=== PATIENT | female | born 1995 | race Caucasian/White ===

== ENCOUNTER 2023-04-16 13:10 | Inpatient (IN) | payer OTHER ==
[2023-04-16 15:04] VITALS: BMI 24.4
[2023-04-16] MEDS ORDERED: POLYETHYLENE GLYCOL (HEALTHYLAX) 3350 17 GM PACKET PO PRN (15:30)
[2023-04-16] MEDS ORDERED: NICOTINE POLACRILEX 4 MG GUM BUC PRN (15:30)
[2023-04-16] MEDS ORDERED: BENZOCAINE/MENTHOL (CHLORASEPTIC ) LOZENGE MM PRN (15:30)
[2023-04-16] MEDS ORDERED: NALOXONE HCL (KLOXXADO) 8 MG SPRAY NS PRN (15:30)
[2023-04-16] MEDS ORDERED: LOPERAMIDE HCL 2 MG CAPSULE PO PRN (15:30)
[2023-04-16] MEDS ORDERED: MAGNESIUM HYDROX 2400MG/30ML ORAL SUSPENSION 30 ML CUP PO PRN (15:30)
[2023-04-16] MEDS ORDERED: MAG HYDROX/AL HYDROX/SIMETH 30 ML UNIT-DOSE CUP PO PRN (15:30)
[2023-04-16] MEDS ORDERED: ACETAMINOPHEN 325 MG TABLET (FP) PO PRN (15:30)
[2023-04-16] MEDS ORDERED: IBUPROFEN 400 MG TABLET (FP) PO PRN (15:30)
[2023-04-16] MEDS ORDERED: ONDANSETRON *ODT* 4 MG TABLET SL PRN (15:30)
[2023-04-16] MEDS ORDERED: BENZONATATE 200 MG CAPSULE PO PRN (15:30)
[2023-04-16] MEDS ORDERED: guaiFENesin 600 MG TABLET.ER (FP) PO PRN (15:30)
[2023-04-16] MEDS ORDERED: chlordiazePOXIDE HCL 25 MG CAPSULE PO PRN (15:30)
[2023-04-16] MEDS ORDERED: BISMUTH SUBSALICYLATE 524 MG/30 ML PO PRN (15:30)
[2023-04-16] MEDS ORDERED: NALOXONE HCL 0.4 MG/ML VIAL IM PRN (15:30)
[2023-04-16] MEDS ORDERED: DICYCLOMINE HCL 10 MG CAPSULE PO PRN (15:30)
[2023-04-16] MEDS ORDERED: IBUPROFEN 600 MG TABLET (FP) PO PRN (15:30)
[2023-04-16] MEDS ORDERED: ACETAMINOPHEN 325 MG TABLET (FP) ONE (16:11)
[2023-04-16] MEDS ORDERED: PRENATAL VITAMINS W/ FOLIC ACID TABLET (FP) PO ONE (16:11)
[2023-04-16] MEDS ORDERED: chlordiazePOXIDE HCL 25 MG CAPSULE ONE (16:11)
[2023-04-16] MEDS: PRENATAL VITAMINS W/ FOLIC ACID TABLET (FP) PO SCH (16:20)
[2023-04-16] MEDS: chlordiazePOXIDE HCL 25 MG CAPSULE PO SCH ×2 (16:20→22:32)
[2023-04-16] MEDS ORDERED: MELATONIN 5 MG TABLETS PO SCH (22:00)
[2023-04-16] MEDS: THIAMINE HCL 100 MG TABLET (FP) PO SCH (22:32)
[2023-04-17] MEDS: chlordiazePOXIDE HCL 25 MG CAPSULE PO SCH ×4 (05:56→22:24)
[2023-04-17] MEDS: METHOCARBAMOL 500 MG TABLET PO PRN (07:22)
[2023-04-17] MEDS: hydrOXYzine PAMOATE 25 MG CAPSULE (FP) PO PRN (07:22)
[2023-04-17] MEDS: PRENATAL VITAMINS W/ FOLIC ACID TABLET (FP) PO SCH (10:09)
[2023-04-17 12:11] LABS: HEMOGLOBIN 13.3 GM/dL (10.7-15.3); MCH 32.1 pg (25.7-33.7); MCHC 33.3 g/dl (32.0-36.0); MEAN CELL VOLUME 96.6 fl (80-96); MEAN PLT VOLUME 8.5 fl (7.5-11.1); PLATELET COUNT 310 10^3/uL (134-434); RBC 4.14 M/mm3 (3.60-5.2); RDW 14.1 % (11.6-15.6); WHITE BLOOD COUNT 5.8 K/mm3 (4.0-10.0)
[2023-04-17 12:15] LABS: CHLORIDE 100 mmol/L (98-107); POTASSIUM 3.7 mmol/L (3.5-5.1); SODIUM 137 mmol/L (136-145)
[2023-04-17 12:23] LABS: ALBUMIN 4.2 g/dl (3.4-5.0); ANION GAP 9 mmol/L (4-13); BLOOD UREA NITROGEN 11.3 mg/dL (7-18); CO2 28 mmol/L (21-32); GLUCOSE,RANDOM 96 mg/dL (74-106)
[2023-04-17 12:25] LABS: CREATININE 0.8 mg/dL (0.55-1.3)
[2023-04-17 12:26] LABS: SGOT/AST 26 U/L (15-37); SGPT/ALT 31 U/L (13-61)
[2023-04-17 12:27] LABS: BILIRUBIN,TOTAL 0.9 mg/dL (0.2-1); TOT PROT 7.6 g/dl (6.4-8.2)
[2023-04-17 12:28] LABS: ALK PHOS 81 U/L (45-117)
[2023-04-17] MEDS: THIAMINE HCL 100 MG TABLET (FP) PO SCH (22:24)
[2023-04-17] MEDS: MELATONIN 5 MG TABLETS PO SCH (22:24)
[2023-04-18] MEDS: chlordiazePOXIDE HCL 25 MG CAPSULE PO SCH ×4 (05:14→22:12)
[2023-04-18] MEDS: hydrOXYzine PAMOATE 25 MG CAPSULE (FP) PO PRN (10:34)
[2023-04-18] MEDS: METHOCARBAMOL 500 MG TABLET PO PRN (10:34)
[2023-04-18] MEDS: PRENATAL VITAMINS W/ FOLIC ACID TABLET (FP) PO SCH (10:34)
[2023-04-18] MEDS: THIAMINE HCL 100 MG TABLET (FP) PO SCH (22:12)
[2023-04-18] MEDS: MELATONIN 5 MG TABLETS PO SCH (22:12)
[2023-04-19] MEDS ORDERED: chlordiazePOXIDE HCL 10 MG CAPSULE PO PRN
[2023-04-19] MEDS: chlordiazePOXIDE HCL 10 MG CAPSULE PO SCH ×4 (05:23→22:14)
[2023-04-19] MEDS: PRENATAL VITAMINS W/ FOLIC ACID TABLET (FP) PO SCH (10:34)
[2023-04-19] MEDS: hydrOXYzine PAMOATE 25 MG CAPSULE (FP) PO PRN ×2 (10:34→22:14)
[2023-04-19] MEDS: METHOCARBAMOL 500 MG TABLET PO PRN (10:34)
[2023-04-19] MEDS: THIAMINE HCL 100 MG TABLET (FP) PO SCH (22:13)
[2023-04-19] MEDS: MELATONIN 5 MG TABLETS PO SCH (22:13)
[2023-04-20] MEDS ORDERED: chlordiazePOXIDE HCL 10 MG CAPSULE PO SCH (05:00)
[2023-04-20 09:09] VITALS: RESP 18
[2023-04-20] MEDS: PRENATAL VITAMINS W/ FOLIC ACID TABLET (FP) PO SCH (10:34)
[2023-04-20] MEDS: hydrOXYzine PAMOATE 25 MG CAPSULE (FP) PO PRN (10:34)
[2023-04-20] MEDS: METHOCARBAMOL 500 MG TABLET PO PRN (10:34)
[2023-04-20 13:13] VITALS: BP 112/81; PULSE 93; TEMP 97.5
[2023-04-21] MEDS ORDERED: chlordiazePOXIDE HCL 10 MG CAPSULE PO ONE (05:00)
== END 2023-04-20 13:45 | disposition home or self-care (01) | DRG 775 ==
LOC: YASAS 13:10 → Y6N 16:28
PROVIDERS: ADMIT Allergy & Immunology; ATTEND Surgery
PROC: HZ2ZZZZ Detoxification Services for Substance Abuse Treatment (ICD-10-PCS; principal; 2023-04-16)
DX: F10.230 Alcohol dependence with withdrawal, uncomplicated (principal); F12.20 Cannabis dependence, uncomplicated; F17.210 Nicotine dependence, cigarettes, uncomplicated; F90.9 Attention-deficit hyperactivity disorder, unspecified type; F43.10 Post-traumatic stress disorder, unspecified; Z62.810 Personal history of physical and sexual abuse in childhood
CPT/HCPCS: 36415; 80053; 80307; 85027; 86780; 87635; 87811; 93005; 93010

== ENCOUNTER 2023-06-18 13:17 | Inpatient (IN) | payer OTHER ==
[2023-06-18 13:45] VITALS: BMI 25.4
[2023-06-18] MEDS ORDERED: IBUPROFEN 600 MG TABLET (FP) PO PRN (14:36)
[2023-06-18] MEDS ORDERED: ONDANSETRON *ODT* 4 MG TABLET SL PRN (14:36)
[2023-06-18] MEDS ORDERED: NALOXONE HCL 0.4 MG/ML VIAL IM PRN (14:36)
[2023-06-18] MEDS ORDERED: MAG HYDROX/AL HYDROX/SIMETH 30 ML UNIT-DOSE CUP PO PRN (14:36)
[2023-06-18] MEDS ORDERED: BISMUTH SUBSALICYLATE 262 MG/15 ML BTL PO PRN (14:36)
[2023-06-18] MEDS ORDERED: BENZOCAINE/MENTHOL (CHLORASEPTIC ) LOZENGE MM PRN (14:36)
[2023-06-18] MEDS ORDERED: BENZONATATE 200 MG CAPSULE PO PRN (14:36)
[2023-06-18] MEDS ORDERED: guaiFENesin 600 MG TABLET.ER (FP) PO PRN (14:36)
[2023-06-18] MEDS ORDERED: LOPERAMIDE HCL 2 MG CAPSULE PO PRN (14:36)
[2023-06-18] MEDS ORDERED: IBUPROFEN 400 MG TABLET (FP) PO PRN (14:36)
[2023-06-18] MEDS ORDERED: chlordiazePOXIDE HCL 25 MG CAPSULE PO PRN (14:36)
[2023-06-18] MEDS ORDERED: ACETAMINOPHEN 325 MG TABLET (FP) PO PRN (14:36)
[2023-06-18] MEDS ORDERED: POLYETHYLENE GLYCOL (HEALTHYLAX) 3350 17 GM PACKET PO PRN (14:36)
[2023-06-18] MEDS ORDERED: MAGNESIUM HYDROX 2400MG/30ML ORAL SUSPENSION 30 ML CUP PO PRN (14:36)
[2023-06-18] MEDS ORDERED: NALOXONE HCL (KLOXXADO) 8 MG SPRAY NS PRN (14:36)
[2023-06-18] MEDS ORDERED: hydrOXYzine PAMOATE 25 MG CAPSULE (FP) PO PRN (14:36)
[2023-06-18] MEDS ORDERED: DICYCLOMINE HCL 10 MG CAPSULE PO PRN (14:36)
[2023-06-18] MEDS: NICOTINE 14 MG/24 HOURS TOPICAL PATCH TD SCH (15:56)
[2023-06-18] MEDS: PRENATAL VITAMINS W/ FOLIC ACID TABLET (FP) PO SCH (16:07)
[2023-06-18] MEDS ORDERED: chlordiazePOXIDE HCL 25 MG CAPSULE ONE (16:16)
[2023-06-18] MEDS: chlordiazePOXIDE HCL 25 MG CAPSULE PO SCH ×2 (16:18→22:28)
[2023-06-18] MEDS: MELATONIN 5 MG TABLETS PO SCH (22:28)
[2023-06-18] MEDS: THIAMINE HCL 100 MG TABLET (FP) PO SCH (22:28)
[2023-06-19] MEDS: chlordiazePOXIDE HCL 25 MG CAPSULE PO SCH ×4 (05:40→22:17)
[2023-06-19 09:51] LABS: HEMATOCRIT 40.5 % (32.4-45.2); HEMOGLOBIN 13.4 GM/dL (10.7-15.3); MCH 31.8 pg (25.7-33.7); MEAN CELL VOLUME 96.3 fl (80-96); MEAN PLT VOLUME 8.2 fl (7.5-11.1); PLATELET COUNT 330 10^3/uL (134-434); RBC 4.21 M/mm3 (3.60-5.2); RDW 14.7 % (11.6-15.6); WHITE BLOOD COUNT 5.5 K/mm3 (4.0-10.0)
[2023-06-19] MEDS: PRENATAL VITAMINS W/ FOLIC ACID TABLET (FP) PO SCH (10:30)
[2023-06-19] MEDS: NICOTINE 14 MG/24 HOURS TOPICAL PATCH TD SCH (10:30)
[2023-06-19 11:29] LABS: CHLORIDE 106 mmol/L (98-107); POTASSIUM 4.1 mmol/L (3.5-5.1); SODIUM 137 mmol/L (136-145)
[2023-06-19 12:05] LABS: ALBUMIN 3.8 g/dl (3.4-5.0); ANION GAP 9 mmol/L (4-13); CO2 23 mmol/L (21-32); GLUCOSE,RANDOM 91 mg/dL (74-106)
[2023-06-19 12:08] LABS: CREATININE 0.7 mg/dL (0.55-1.3); SGOT/AST 19 U/L (15-37); SGPT/ALT 25 U/L (13-61)
[2023-06-19 12:09] LABS: TOT PROT 7.1 g/dl (6.4-8.2)
[2023-06-19 12:10] LABS: BILIRUBIN,TOTAL 0.6 mg/dL (0.2-1)
[2023-06-19 12:11] LABS: ALK PHOS 74 U/L (45-117)
[2023-06-19] MEDS: MELATONIN 5 MG TABLETS PO SCH (22:17)
[2023-06-19] MEDS: THIAMINE HCL 100 MG TABLET (FP) PO SCH (22:17)
[2023-06-19] MEDS: METHOCARBAMOL 500 MG TABLET PO PRN (22:18)
[2023-06-20] MEDS: chlordiazePOXIDE HCL 25 MG CAPSULE PO SCH ×4 (05:37→22:26)
[2023-06-20] MEDS: PRENATAL VITAMINS W/ FOLIC ACID TABLET (FP) PO SCH (10:06)
[2023-06-20] MEDS: NICOTINE 14 MG/24 HOURS TOPICAL PATCH TD SCH (10:08)
[2023-06-20] MEDS: METHOCARBAMOL 500 MG TABLET PO PRN (22:26)
[2023-06-20] MEDS: MELATONIN 5 MG TABLETS PO SCH (22:26)
[2023-06-20] MEDS: THIAMINE HCL 100 MG TABLET (FP) PO SCH (22:26)
[2023-06-21] MEDS ORDERED: chlordiazePOXIDE HCL 10 MG CAPSULE PO PRN
[2023-06-21] MEDS: chlordiazePOXIDE HCL 10 MG CAPSULE PO SCH ×4 (05:36→22:04)
[2023-06-21] MEDS: PRENATAL VITAMINS W/ FOLIC ACID TABLET (FP) PO SCH (10:23)
[2023-06-21] MEDS: NICOTINE 14 MG/24 HOURS TOPICAL PATCH TD SCH (10:25)
[2023-06-21] MEDS: MELATONIN 5 MG TABLETS PO SCH (22:01)
[2023-06-21] MEDS: THIAMINE HCL 100 MG TABLET (FP) PO SCH (22:02)
[2023-06-21] MEDS: METHOCARBAMOL 500 MG TABLET PO PRN (22:03)
[2023-06-22] MEDS ORDERED: chlordiazePOXIDE HCL 10 MG CAPSULE PO SCH (05:00)
[2023-06-22 06:45] VITALS: RESP 16
[2023-06-22 09:14] VITALS: BP 122/66; PULSE 85; TEMP 97.8
[2023-06-22] MEDS: NICOTINE 14 MG/24 HOURS TOPICAL PATCH TD SCH (09:36)
[2023-06-22] MEDS: PRENATAL VITAMINS W/ FOLIC ACID TABLET (FP) PO SCH (09:36)
[2023-06-23] MEDS ORDERED: chlordiazePOXIDE HCL 10 MG CAPSULE PO ONE (05:00)
== END 2023-06-22 09:40 | disposition home or self-care (01) | DRG 775 ==
LOC: YASAS 13:17 → Y6N 16:22
PROVIDERS: ADMIT Allergy & Immunology; ATTEND Surgery
PROC: HZ2ZZZZ Detoxification Services for Substance Abuse Treatment (ICD-10-PCS; principal; 2023-06-18)
DX: F10.230 Alcohol dependence with withdrawal, uncomplicated (principal); F12.20 Cannabis dependence, uncomplicated; F17.210 Nicotine dependence, cigarettes, uncomplicated; F31.9 Bipolar disorder, unspecified; F41.9 Anxiety disorder, unspecified; F43.10 Post-traumatic stress disorder, unspecified; Z62.810 Personal history of physical and sexual abuse in childhood
CPT/HCPCS: 36415; 80053; 80305; 80307; 81025; 85027; 86780; 87635; 87811

== ENCOUNTER 2023-07-27 10:47 | Inpatient (IN) | payer OTHER ==
[2023-07-27 11:03] VITALS: BMI 26.2
[2023-07-27] MEDS ORDERED: POLYETHYLENE GLYCOL (HEALTHYLAX) 3350 17 GM PACKET PO PRN (11:52)
[2023-07-27] MEDS ORDERED: NALOXONE HCL 0.4 MG/ML VIAL IM PRN (11:52)
[2023-07-27] MEDS ORDERED: guaiFENesin 600 MG TABLET.ER (FP) PO PRN (11:52)
[2023-07-27] MEDS ORDERED: MAG HYDROX/AL HYDROX/SIMETH 30 ML UNIT-DOSE CUP PO PRN (11:52)
[2023-07-27] MEDS ORDERED: ONDANSETRON *ODT* 4 MG TABLET SL PRN (11:52)
[2023-07-27] MEDS ORDERED: BENZONATATE 200 MG CAPSULE PO PRN (11:52)
[2023-07-27] MEDS ORDERED: chlordiazePOXIDE HCL 25 MG CAPSULE PO PRN (11:52)
[2023-07-27] MEDS ORDERED: BENZOCAINE/MENTHOL (CHLORASEPTIC ) LOZENGE MM PRN (11:52)
[2023-07-27] MEDS ORDERED: DICYCLOMINE HCL 10 MG CAPSULE PO PRN (11:52)
[2023-07-27] MEDS ORDERED: NALOXONE HCL (KLOXXADO) 8 MG SPRAY NS PRN (11:52)
[2023-07-27] MEDS ORDERED: MAGNESIUM HYDROX 2400MG/30ML ORAL SUSPENSION 30 ML CUP PO PRN (11:52)
[2023-07-27] MEDS ORDERED: ACETAMINOPHEN 325 MG TABLET (FP) PO PRN (11:52)
[2023-07-27] MEDS ORDERED: BISMUTH SUBSALICYLATE 524 MG/30 ML PO PRN (11:52)
[2023-07-27] MEDS ORDERED: LOPERAMIDE HCL 2 MG CAPSULE PO PRN (11:52)
[2023-07-27] MEDS ORDERED: IBUPROFEN 400 MG TABLET (FP) PO PRN (11:52)
[2023-07-27] MEDS ORDERED: IBUPROFEN 600 MG TABLET (FP) PO PRN (11:52)
[2023-07-27] MEDS: PRENATAL VITAMINS W/ FOLIC ACID TABLET (FP) PO SCH (12:09)
[2023-07-27] MEDS: NICOTINE 14 MG/24 HOURS TOPICAL PATCH TD SCH ×2 (12:09→12:16)
[2023-07-27] MEDS ORDERED: chlordiazePOXIDE HCL 25 MG CAPSULE ONE (12:20)
[2023-07-27] MEDS ORDERED: ONDANSETRON *ODT* 4 MG TABLET ONE (12:20)
[2023-07-27] MEDS: chlordiazePOXIDE HCL 25 MG CAPSULE PO SCH ×2 (17:50→22:16)
[2023-07-27] MEDS ORDERED: MELATONIN 5 MG TABLETS PO SCH (22:00)
[2023-07-27] MEDS: MELATONIN 5 MG TABLETS PO SCH (22:15)
[2023-07-27] MEDS: THIAMINE HCL 100 MG TABLET (FP) PO SCH (22:15)
[2023-07-28] MEDS: chlordiazePOXIDE HCL 25 MG CAPSULE PO SCH ×4 (05:25→22:10)
[2023-07-28] MEDS: PRENATAL VITAMINS W/ FOLIC ACID TABLET (FP) PO SCH (10:19)
[2023-07-28] MEDS: NICOTINE 14 MG/24 HOURS TOPICAL PATCH TD SCH (10:20)
[2023-07-28 14:02] LABS: HEMATOCRIT 39.4 % (32.4-45.2); MCH 31.3 pg (25.7-33.7); MEAN PLT VOLUME 8.5 fl (7.5-11.1); PLATELET COUNT 354 10^3/uL (134-434); RBC 4.15 M/mm3 (3.60-5.2); RDW 15.3 % (11.6-15.6); WHITE BLOOD COUNT 6.6 K/mm3 (4.0-10.0)
[2023-07-28 14:04] LABS: POTASSIUM 4.6 mmol/L (3.5-5.1)
[2023-07-28 14:10] LABS: ALBUMIN 4.3 g/dl (3.4-5.0); BLOOD UREA NITROGEN 9.9 mg/dL (7-18); CALCIUM 10.4 mg/dL (8.5-10.1)
[2023-07-28 14:13] LABS: CREATININE 0.6 mg/dL (0.55-1.3)
[2023-07-28 14:16] LABS: BILIRUBIN,TOTAL 0.8 mg/dL (0.2-1); TOT PROT 7.9 g/dl (6.4-8.2)
[2023-07-28] MEDS: MELATONIN 5 MG TABLETS PO SCH (22:09)
[2023-07-28] MEDS: THIAMINE HCL 100 MG TABLET (FP) PO SCH (22:09)
[2023-07-28] MEDS: METHOCARBAMOL 500 MG TABLET PO PRN (22:10)
[2023-07-29] MEDS: chlordiazePOXIDE HCL 25 MG CAPSULE PO SCH ×2 (05:34→10:14)
[2023-07-29] MEDS: hydrOXYzine PAMOATE 25 MG CAPSULE (FP) PO PRN (05:49)
[2023-07-29] MEDS: NICOTINE 14 MG/24 HOURS TOPICAL PATCH TD SCH (10:13)
[2023-07-29] MEDS: PRENATAL VITAMINS W/ FOLIC ACID TABLET (FP) PO SCH (10:13)
[2023-07-29] MEDS ORDERED: LORazepam 1 MG TABLET PO PRN (11:15)
[2023-07-29] MEDS: LACTULOSE 20 GM/30 ML UDC (FOR ORAL USE ONLY) PO SCH ×3 (13:40→22:23)
[2023-07-29] MEDS ORDERED: LORazepam 2 MG TABLET PO SCH (17:00)
[2023-07-29] MEDS: LORazepam 1 MG TABLET PO SCH ×2 (17:32→22:22)
[2023-07-29] MEDS: MELATONIN 5 MG TABLETS PO SCH (22:21)
[2023-07-29] MEDS: THIAMINE HCL 100 MG TABLET (FP) PO SCH (22:22)
[2023-07-29] MEDS: METHOCARBAMOL 500 MG TABLET PO PRN (22:22)
[2023-07-30] MEDS ORDERED: chlordiazePOXIDE HCL 10 MG CAPSULE PO PRN
[2023-07-30] MEDS ORDERED: chlordiazePOXIDE HCL 10 MG CAPSULE PO SCH (05:00)
[2023-07-30] MEDS: LORazepam 1 MG TABLET PO SCH ×2 (05:14→10:14)
[2023-07-30] MEDS: hydrOXYzine PAMOATE 25 MG CAPSULE (FP) PO PRN (05:16)
[2023-07-30 09:43] VITALS: BP 115/78; PULSE 103; RESP 16; TEMP 97.8
[2023-07-30] MEDS: LACTULOSE 20 GM/30 ML UDC (FOR ORAL USE ONLY) PO SCH (10:12)
[2023-07-30] MEDS: PRENATAL VITAMINS W/ FOLIC ACID TABLET (FP) PO SCH (10:12)
[2023-07-30] MEDS: NICOTINE 14 MG/24 HOURS TOPICAL PATCH TD SCH (10:17)
[2023-07-31] MEDS ORDERED: chlordiazePOXIDE HCL 10 MG CAPSULE PO SCH (05:00)
[2023-07-31] MEDS ORDERED: LORazepam 0.5 MG TABLET PO SCH (05:00)
[2023-08-01] MEDS ORDERED: chlordiazePOXIDE HCL 10 MG CAPSULE PO ONE (05:00)
[2023-08-01] MEDS ORDERED: LORazepam 0.5 MG TABLET PO ONE (05:00)
== END 2023-07-30 12:10 | disposition left against medical advice (07) | DRG 770 ==
LOC: YASAS 10:47 → Y3N 11:58 → Y6N 13:04
PROVIDERS: ADMIT Allergy & Immunology; ATTEND Allergy & Immunology
PROC: HZ2ZZZZ Detoxification Services for Substance Abuse Treatment (ICD-10-PCS; principal; 2023-07-27)
DX: F10.230 Alcohol dependence with withdrawal, uncomplicated (principal); F12.20 Cannabis dependence, uncomplicated; F17.210 Nicotine dependence, cigarettes, uncomplicated; F10.280 Alcohol dependence with alcohol-induced anxiety disorder; F10.282 Alcohol dependence with alcohol-induced sleep disorder; R74.01 Elevation of levels of liver transaminase levels; R79.89 Other specified abnormal findings of blood chemistry; Z62.810 Personal history of physical and sexual abuse in childhood; Z91.410 Personal history of adult physical and sexual abuse; Z63.0 Problems in relationship with spouse or partner
CPT/HCPCS: 36415; 80053; 80305; 80307; 81025; 82140; 85027; 86780; 87635; Q0162

== ENCOUNTER 2023-10-12 23:34 | Inpatient (IN) | payer OTHER ==
[2023-10-13 00:14] VITALS: BMI 24.3
[2023-10-13] MEDS ORDERED: chlordiazePOXIDE HCL 25 MG CAPSULE PO PRN (01:47)
[2023-10-13] MEDS ORDERED: MAGNESIUM HYDROX 2400MG/30ML ORAL SUSPENSION 30 ML CUP PO PRN (01:50)
[2023-10-13] MEDS ORDERED: BENZOCAINE/MENTHOL (CHLORASEPTIC ) LOZENGE MM PRN (01:50)
[2023-10-13] MEDS ORDERED: BENZONATATE 200 MG CAPSULE PO PRN (01:50)
[2023-10-13] MEDS ORDERED: ACETAMINOPHEN 325 MG TABLET (FP) PO PRN (01:50)
[2023-10-13] MEDS ORDERED: BISMUTH SUBSALICYLATE 524 MG/30 ML PO PRN (01:50)
[2023-10-13] MEDS ORDERED: guaiFENesin 600 MG TABLET.ER (FP) PO PRN (01:50)
[2023-10-13] MEDS ORDERED: hydrOXYzine PAMOATE 25 MG CAPSULE (FP) PO PRN (01:50)
[2023-10-13] MEDS ORDERED: DICYCLOMINE HCL 10 MG CAPSULE PO PRN (01:50)
[2023-10-13] MEDS ORDERED: IBUPROFEN 600 MG TABLET (FP) PO PRN (01:50)
[2023-10-13] MEDS ORDERED: NICOTINE POLACRILEX 2 MG GUM BUC PRN (01:50)
[2023-10-13] MEDS ORDERED: IBUPROFEN 400 MG TABLET (FP) PO PRN (01:50)
[2023-10-13] MEDS ORDERED: POLYETHYLENE GLYCOL (HEALTHYLAX) 3350 17 GM PACKET PO PRN (01:50)
[2023-10-13] MEDS ORDERED: MAG HYDROX/AL HYDROX/SIMETH 30 ML UNIT-DOSE CUP PO PRN (01:50)
[2023-10-13] MEDS ORDERED: LOPERAMIDE HCL 2 MG CAPSULE PO PRN (01:50)
[2023-10-13] MEDS ORDERED: chlordiazePOXIDE HCL 25 MG CAPSULE ONE ×2 (05:08→09:28)
[2023-10-13] MEDS: chlordiazePOXIDE HCL 25 MG CAPSULE PO SCH (05:21)
[2023-10-13] MEDS ORDERED: PRENATAL VITAMINS W/ FOLIC ACID TABLET (FP) PO ONE (09:28)
[2023-10-13] MEDS: ONDANSETRON *ODT* 4 MG TABLET SL PRN (09:55)
[2023-10-13] MEDS: PRENATAL VITAMINS W/ FOLIC ACID TABLET (FP) PO SCH (09:56)
[2023-10-13] MEDS ORDERED: IBUPROFEN 400 MG TABLET (FP) PO ONE (09:59)
[2023-10-13] MEDS ORDERED: ONDANSETRON *ODT* 4 MG TABLET ONE (10:00)
[2023-10-13] MEDS: THIAMINE HCL 100 MG TABLET (FP) PO SCH (22:15)
[2023-10-13] MEDS: METHOCARBAMOL 500 MG TABLET PO PRN (22:15)
[2023-10-13] MEDS: MELATONIN 5 MG TABLETS PO SCH (22:15)
[2023-10-14] MEDS: chlordiazePOXIDE HCL 25 MG CAPSULE PO SCH (05:38)
[2023-10-15] MEDS ORDERED: chlordiazePOXIDE HCL 10 MG CAPSULE PO PRN
[2023-10-15] MEDS: chlordiazePOXIDE HCL 10 MG CAPSULE PO SCH (05:43)
[2023-10-16] MEDS: chlordiazePOXIDE HCL 10 MG CAPSULE PO SCH (05:00)
[2023-10-16] MEDS: TRIMETHOBENZAMIDE HCL 200MG/2ML INJ IM ONE (18:44)
[2023-10-17] MEDS: chlordiazePOXIDE HCL 10 MG CAPSULE PO ONE (05:40)
[2023-10-17 09:34] VITALS: BP 100/60; PULSE 75; RESP 16; TEMP 97.7
== END 2023-10-17 10:16 | disposition home or self-care (01) | DRG 775 ==
LOC: YASAS 23:34 → Y6N 10-13 09:56
PROVIDERS: ADMIT Allergy & Immunology; ATTEND Surgery
PROC: HZ2ZZZZ Detoxification Services for Substance Abuse Treatment (ICD-10-PCS; principal; 2023-10-13)
DX: F10.230 Alcohol dependence with withdrawal, uncomplicated (principal); F12.20 Cannabis dependence, uncomplicated; F17.210 Nicotine dependence, cigarettes, uncomplicated
CPT/HCPCS: 81025; 93005; 93010; Q0162

== ENCOUNTER 2024-01-13 10:43 | Inpatient (IN) | payer OTHER ==
[2024-01-13] MEDS ORDERED: IBUPROFEN 400 MG TABLET (FP) PO PRN (11:51)
[2024-01-13] MEDS ORDERED: guaiFENesin 600 MG TABLET.ER (FP) PO PRN (11:51)
[2024-01-13] MEDS ORDERED: ONDANSETRON *ODT* 4 MG TABLET SL PRN (11:51)
[2024-01-13] MEDS ORDERED: BENZOCAINE/MENTHOL (CHLORASEPTIC ) LOZENGE MM PRN (11:51)
[2024-01-13] MEDS ORDERED: NICOTINE POLACRILEX 2 MG LOZENGE BC PRN (11:51)
[2024-01-13] MEDS ORDERED: LOPERAMIDE HCL 2 MG CAPSULE PO PRN (11:51)
[2024-01-13] MEDS ORDERED: NICOTINE POLACRILEX 2 MG GUM BUC PRN (11:51)
[2024-01-13] MEDS ORDERED: POLYETHYLENE GLYCOL (HEALTHYLAX) 3350 17 GM PACKET PO PRN (11:51)
[2024-01-13] MEDS ORDERED: BISMUTH SUBSALICYLATE 262 MG/15 ML BTL PO PRN (11:51)
[2024-01-13] MEDS ORDERED: ACETAMINOPHEN 325 MG TABLET (FP) PO PRN (11:51)
[2024-01-13] MEDS ORDERED: MAG HYDROX/AL HYDROX/SIMETH 30 ML UNIT-DOSE CUP PO PRN (11:51)
[2024-01-13] MEDS ORDERED: BENZONATATE 200 MG CAPSULE PO PRN (11:51)
[2024-01-13] MEDS ORDERED: DICYCLOMINE HCL 10 MG CAPSULE PO PRN (11:51)
[2024-01-13 12:10] VITALS: BMI 26.9
[2024-01-13] MEDS ORDERED: diazePAM 5 MG TABLET ONE (12:24)
[2024-01-13] MEDS: diazePAM 5 MG TABLET PO SCH (12:29)
[2024-01-13] MEDS: MELATONIN 5 MG TABLETS PO SCH (22:37)
[2024-01-13] MEDS: THIAMINE 100 MG TABLET PO SCH (22:38)
[2024-01-13] MEDS: METHOCARBAMOL 500 MG TABLET PO PRN (22:41)
[2024-01-14] MEDS: PRENATAL VITAMINS W/ FOLIC ACID TABLET (FP) PO SCH (10:35)
[2024-01-14 11:36] LABS: HEMATOCRIT 38.4 % (32.4-45.2); HEMOGLOBIN 12.8 GM/dL (10.7-15.3); MCH 30.8 pg (25.7-33.7); MCHC 33.2 g/dl (32.0-36.0); MEAN CELL VOLUME 92.8 fl (80-96); MEAN PLT VOLUME 8.3 fl (7.5-11.1); PLATELET COUNT 328 10^3/uL (134-434); RBC 4.14 M/mm3 (3.60-5.2); RDW 14.4 % (11.6-15.6); WHITE BLOOD COUNT 5.9 K/mm3 (4.0-10.0)
[2024-01-14 11:38] LABS: POTASSIUM 4.2 mmol/L (3.5-5.1)
[2024-01-14 11:41] LABS: CALCIUM 9.3 mg/dL (8.5-10.1)
[2024-01-14 11:42] LABS: ALBUMIN 3.7 g/dl (3.4-5.0)
[2024-01-14 11:45] LABS: CREATININE 0.8 mg/dL (0.55-1.3)
[2024-01-14 11:46] LABS: TOT PROT 6.8 g/dl (6.4-8.2)
[2024-01-14 11:47] LABS: BILIRUBIN,TOTAL 0.3 mg/dL (0.2-1)
[2024-01-14] MEDS: diazePAM 5 MG TABLET PO SCH (17:57)
[2024-01-15] MEDS: diazePAM 5 MG TABLET PO SCH (05:39)
[2024-01-15] MEDS: MAGNESIUM HYDROX 2400MG/30ML ORAL SUSPENSION 30 ML CUP PO PRN (14:13)
[2024-01-15] MEDS: diazePAM 5 MG TABLET PO PRN (17:44)
[2024-01-16] MEDS: diazePAM 5 MG TABLET PO SCH (05:47)
[2024-01-16] MEDS: IBUPROFEN 600 MG TABLET (FP) PO PRN (06:21)
[2024-01-16 20:41] VITALS: RESP 16
[2024-01-16] MEDS: MELATONIN 5 MG TABLETS PO SCH (22:04)
[2024-01-17] MEDS: diazePAM 5 MG TABLET PO ONE (05:50)
[2024-01-17 06:58] VITALS: TEMP 97.1
[2024-01-17 09:03] VITALS: BP 107/62; PULSE 71
== END 2024-01-17 13:18 | disposition home or self-care (01) | DRG 775 ==
LOC: YASAS 10:43 → Y6N 12:17
PROVIDERS: ADMIT Allergy & Immunology; ATTEND Surgery
PROC: HZ2ZZZZ Detoxification Services for Substance Abuse Treatment (ICD-10-PCS; principal; 2024-01-13)
DX: F10.230 Alcohol dependence with withdrawal, uncomplicated (principal); F12.20 Cannabis dependence, uncomplicated; F17.210 Nicotine dependence, cigarettes, uncomplicated; F19.282 Other psychoactive substance dependence with psychoactive substance-induced sleep disorder; Z86.59 Personal history of other mental and behavioral disorders; Z62.810 Personal history of physical and sexual abuse in childhood
CPT/HCPCS: 36415; 80053; 80305; 80307; 81025; 85027; 86780

== ENCOUNTER 2024-06-20 14:35 | Inpatient (IN) | payer OTHER ==
[2024-06-20 15:25] VITALS: BMI 24.2
[2024-06-20] MEDS ORDERED: chlordiazePOXIDE HCL 25 MG CAPSULE PO PRN (17:58)
[2024-06-20] MEDS ORDERED: LOPERAMIDE HCL 2 MG CAPSULE PO PRN (18:02)
[2024-06-20] MEDS ORDERED: BENZONATATE 200 MG CAPSULE PO PRN (18:02)
[2024-06-20] MEDS ORDERED: POLYETHYLENE GLYCOL (HEALTHYLAX) 3350 17 GM PACKET PO PRN (18:02)
[2024-06-20] MEDS ORDERED: IBUPROFEN 400 MG TABLET (FP) PO PRN (18:02)
[2024-06-20] MEDS ORDERED: DICYCLOMINE HCL 10 MG CAPSULE PO PRN (18:02)
[2024-06-20] MEDS ORDERED: guaiFENesin 600 MG TABLET.ER (FP) PO PRN (18:02)
[2024-06-20] MEDS ORDERED: MAGNESIUM HYDROX 2400MG/30ML ORAL SUSPENSION 30 ML CUP PO PRN (18:02)
[2024-06-20] MEDS ORDERED: NICOTINE POLACRILEX 2 MG GUM BUC PRN (18:02)
[2024-06-20] MEDS ORDERED: ACETAMINOPHEN 325 MG TABLET (FP) PO PRN (18:02)
[2024-06-20] MEDS ORDERED: MAG HYDROX/AL HYDROX/SIMETH 30 ML UNIT-DOSE CUP PO PRN (18:02)
[2024-06-20] MEDS ORDERED: AMMONIUM LACTATE 12% LOTION 225 GM BOTTLE TP PRN (18:02)
[2024-06-20] MEDS ORDERED: BENZOCAINE/MENTHOL (CHLORASEPTIC ) LOZENGE MM PRN (18:02)
[2024-06-20] MEDS ORDERED: BISMUTH SUBSALICYLATE 524 MG/30 ML PO PRN (18:02)
[2024-06-20] MEDS ORDERED: chlordiazePOXIDE HCL 25 MG CAPSULE ONE (19:03)
[2024-06-20] MEDS: chlordiazePOXIDE HCL 25 MG CAPSULE PO ONE (19:04)
[2024-06-20] MEDS: ONDANSETRON *ODT* 4 MG TABLET SL PRN (19:40)
[2024-06-20] MEDS: THIAMINE 100 MG TABLET PO SCH (22:08)
[2024-06-20] MEDS: MELATONIN 5 MG TABLETS PO SCH (22:08)
[2024-06-20] MEDS: chlordiazePOXIDE HCL 25 MG CAPSULE PO SCH (22:08)
[2024-06-21] MEDS: VITAMINS A AND D TOPICAL OINTMENT TP SCH (03:36)
[2024-06-21] MEDS: PRENATAL VITAMINS W/ FOLIC ACID TABLET (FP) PO SCH (09:38)
[2024-06-21 12:30] LABS: POTASSIUM 3.7 mmol/L (3.5-5.1)
[2024-06-21 12:31] LABS: HEMATOCRIT 40.9 % (32.4-45.2); HEMOGLOBIN 13.8 GM/dL (10.7-15.3); MCH 32.5 pg (25.7-33.7); MCHC 33.6 g/dl (32.0-36.0); MEAN CELL VOLUME 96.7 fl (80-96); MEAN PLT VOLUME 8.2 fl (7.5-11.1); PLATELET COUNT 301 10^3/uL (134-434); RBC 4.23 M/mm3 (3.60-5.2); RDW 14.5 % (11.6-15.6); WHITE BLOOD COUNT 4.4 K/mm3 (4.0-10.0)
[2024-06-21 12:33] LABS: CALCIUM 9.7 mg/dL (8.5-10.1)
[2024-06-21 12:34] LABS: ALBUMIN 3.7 g/dl (3.4-5.0); BLOOD UREA NITROGEN 8.4 mg/dL (7-18)
[2024-06-21 12:37] LABS: BILIRUBIN,TOTAL 1.2 mg/dL (0.2-1); CREATININE 0.8 mg/dL (0.55-1.3)
[2024-06-21] MEDS: CLOTRIMAZOLE 1% CREAM TP SCH (13:29)
[2024-06-22] MEDS: chlordiazePOXIDE HCL 25 MG CAPSULE PO SCH (05:43)
[2024-06-22] MEDS: METHOCARBAMOL 500 MG TABLET PO PRN (10:22)
[2024-06-22] MEDS: IBUPROFEN 600 MG TABLET (FP) PO PRN (22:19)
[2024-06-23] MEDS ORDERED: chlordiazePOXIDE HCL 10 MG CAPSULE PO PRN
[2024-06-23] MEDS: chlordiazePOXIDE HCL 10 MG CAPSULE PO SCH (05:39)
[2024-06-24] MEDS: chlordiazePOXIDE HCL 10 MG CAPSULE PO SCH (05:26)
[2024-06-24] MEDS: hydrOXYzine PAMOATE 25 MG CAPSULE (FP) PO PRN (13:20)
[2024-06-24] MEDS ORDERED: TRIMETHOBENZAMIDE HCL 200MG/2ML INJ IM ONE (13:30)
[2024-06-24] MEDS: TRIMETHOBENZAMIDE HCL 200MG/2ML INJ IM ONE (15:34)
[2024-06-24] MEDS: MELATONIN 5 MG TABLETS PO SCH (22:29)
[2024-06-25] MEDS: chlordiazePOXIDE HCL 10 MG CAPSULE PO ONE (05:38)
[2024-06-25 06:22] VITALS: PULSE 83
[2024-06-25 09:10] VITALS: BP 115/78; RESP 18; TEMP 97.7
[2024-06-25] MEDS: NALOXONE (NYS OPIOID OVERDOSE PROGRAM) 4 MG/0.1 ML SPRAY NS SCH (11:32)
== END 2024-06-25 10:06 | disposition home or self-care (01) | DRG 775 ==
LOC: YASAS 14:35 → Y6N 19:15
PROVIDERS: ADMIT Allergy & Immunology; ATTEND Surgery
PROC: HZ2ZZZZ Detoxification Services for Substance Abuse Treatment (ICD-10-PCS; principal; 2024-06-20)
DX: F10.230 Alcohol dependence with withdrawal, uncomplicated (principal); F12.20 Cannabis dependence, uncomplicated; F17.211 Nicotine dependence, cigarettes, in remission; F41.9 Anxiety disorder, unspecified; F32.A Depression, unspecified; Z59.00 Homelessness unspecified
CPT/HCPCS: 36415; 80053; 85027; 86780; Q0162

== ENCOUNTER 2024-12-19 13:25 | Inpatient (IN) | payer OTHER ==
[2024-12-19 14:07] VITALS: BMI 23.4
[2024-12-19] MEDS ORDERED: MAG HYDROX/AL HYDROX/SIMETH 30 ML UNIT-DOSE CUP PO PRN (14:56)
[2024-12-19] MEDS ORDERED: ACETAMINOPHEN 325 MG TABLET (FP) PO PRN (14:56)
[2024-12-19] MEDS ORDERED: BENZONATATE 200 MG CAPSULE PO PRN (14:56)
[2024-12-19] MEDS ORDERED: NALOXONE (NARCAN) HCL 4 MG/0.1 ML SPRAY NS PRN (14:56)
[2024-12-19] MEDS ORDERED: IBUPROFEN 400 MG TABLET (FP) PO PRN (14:56)
[2024-12-19] MEDS ORDERED: BISMUTH SUBSALICYLATE 262 MG/15 ML BTL PO PRN (14:56)
[2024-12-19] MEDS ORDERED: guaiFENesin 600 MG TABLET.ER (FP) PO PRN (14:56)
[2024-12-19] MEDS ORDERED: POLYETHYLENE GLYCOL (HEALTHYLAX) 3350 17 GM PACKET PO PRN (14:56)
[2024-12-19] MEDS ORDERED: DICYCLOMINE HCL 10 MG CAPSULE PO PRN (14:56)
[2024-12-19] MEDS ORDERED: LOPERAMIDE HCL 2 MG CAPSULE PO PRN (14:56)
[2024-12-19] MEDS ORDERED: BENZOCAINE/MENTHOL (CHLORASEPTIC ) LOZENGE MM PRN (14:56)
[2024-12-19] MEDS ORDERED: IBUPROFEN 600 MG TABLET (FP) PO PRN (14:56)
[2024-12-19] MEDS ORDERED: chlordiazePOXIDE HCL 25 MG CAPSULE ONE (16:05)
[2024-12-19] MEDS: NALTREXONE HCL 50 MG TABLET PO ONE (16:09)
[2024-12-19] MEDS: chlordiazePOXIDE HCL 25 MG CAPSULE PO PRN (16:10)
[2024-12-19] MEDS: chlordiazePOXIDE HCL 25 MG CAPSULE PO SCH (18:00)
[2024-12-19] MEDS: MELATONIN 5 MG TABLETS PO SCH (22:27)
[2024-12-19] MEDS: hydrOXYzine PAMOATE 25 MG CAPSULE (FP) PO PRN (22:27)
[2024-12-19] MEDS: THIAMINE 100 MG TABLET PO SCH (22:27)
[2024-12-20] MEDS: ONDANSETRON *ODT* 4 MG TABLET SL PRN (06:12)
[2024-12-20] MEDS: PRENATAL VITAMINS W/ FOLIC ACID TABLET (FP) PO SCH (10:28)
[2024-12-20] MEDS: NALTREXONE HCL 50 MG TABLET PO SCH (10:33)
[2024-12-20 11:35] LABS: HEMATOCRIT 51.2 % (34.1-44.9); HEMOGLOBIN 16.4 g/dL (11.2-15.7); MEAN CELL VOLUME 98.1 fl (79.4-94.8); MEAN PLT VOLUME 11.3 fl (9.4-12.3); PLATELET COUNT 293 x10^3/uL (182-369); RDW 14.1 % (12.1-16.5)
[2024-12-20 12:34] LABS: CALCIUM 11.1 mg/dL (8.5-10.1); CHLORIDE 98 mmol/L (98-107); POTASSIUM 3.5 mmol/L (3.5-5.1); SODIUM 139 mmol/L (136-145)
[2024-12-20 12:35] LABS: ALBUMIN 4.6 g/dl (3.4-5.0); ANION GAP 14 mmol/L (4-13); BLOOD UREA NITROGEN 12.3 mg/dL (7-18); CO2 26 mmol/L (21-32); GLUCOSE,RANDOM 101 mg/dL (74-106)
[2024-12-20 12:38] LABS: CREATININE 0.9 mg/dL (0.55-1.3); SGOT/AST 111 U/L (15-37); SGPT/ALT 77 U/L (13-61)
[2024-12-20 12:39] LABS: BILIRUBIN,TOTAL 3.1 mg/dL (0.2-1); TOT PROT 8.3 g/dl (6.4-8.2)
[2024-12-20 12:41] LABS: ALK PHOS 111 U/L (45-117)
[2024-12-20] MEDS: NICOTINE 7 MG/24 HOURS TOPICAL PATCH TD SCH (14:46)
[2024-12-20] MEDS: TOLNAFTATE 1% CREAM 15 GM TUBE TP SCH (14:59)
[2024-12-20 17:14] LABS: HCV DIAGNOSTIC IN-HOUSE W/RFLX NON-REACTIVE (NONREACTIVE); HIV INTERPRETATION NEGATIVE (NEGATIVE)
[2024-12-20] MEDS: VITAMINS A AND D TOPICAL OINTMENT TP SCH (17:58)
[2024-12-20] MEDS: MELATONIN 5 MG TABLETS PO SCH (22:11)
[2024-12-21] MEDS: chlordiazePOXIDE HCL 25 MG CAPSULE PO SCH (05:44)
[2024-12-21 12:16] LABS: ALBUMIN 3.6 g/dl (3.4-5.0); BILIRUBIN,DIRECT 0.3 mg/dL (0.0-0.2)
[2024-12-21 12:17] LABS: TOT PROT 6.6 g/dl (6.4-8.2)
[2024-12-21 12:23] LABS: BILIRUBIN,TOTAL 0.9 mg/dL (0.2-1)
[2024-12-21] MEDS ORDERED: guaiFENesin 200 MG/10 ML 10 ML UNIT-DOSE CUPS PO PRN (14:12)
[2024-12-22] MEDS: chlordiazePOXIDE HCL 10 MG CAPSULE PO SCH (04:08)
[2024-12-22] MEDS: METHOCARBAMOL 500 MG TABLET PO PRN (04:08)
[2024-12-22] MEDS: chlordiazePOXIDE HCL 10 MG CAPSULE PO PRN (05:26)
[2024-12-22] MEDS: MAGNESIUM HYDROX 2400MG/30ML ORAL SUSPENSION 30 ML CUP PO PRN (10:29)
[2024-12-22] MEDS: traZODone HCL 50 MG TABLET (FP) PO SCH (22:22)
[2024-12-23] MEDS: chlordiazePOXIDE HCL 10 MG CAPSULE PO SCH (06:05)
[2024-12-23] MEDS: NICOTINE POLACRILEX 2 MG GUM BUC PRN (14:36)
[2024-12-24] MEDS: chlordiazePOXIDE HCL 10 MG CAPSULE PO ONE (05:59)
[2024-12-24 09:35] VITALS: BP 110/87; PULSE 85; RESP 18; TEMP 98.4
== END 2024-12-24 10:35 | disposition home or self-care (01) | DRG 775 ==
LOC: YASAS 13:25 → Y6N 16:21
PROVIDERS: ADMIT Allergy & Immunology; ATTEND Allergy & Immunology
PROC: HZ2ZZZZ Detoxification Services for Substance Abuse Treatment (ICD-10-PCS; principal; 2024-12-19)
DX: F10.230 Alcohol dependence with withdrawal, uncomplicated (principal); F12.20 Cannabis dependence, uncomplicated; F17.210 Nicotine dependence, cigarettes, uncomplicated; F19.282 Other psychoactive substance dependence with psychoactive substance-induced sleep disorder; F19.24 Other psychoactive substance dependence with psychoactive substance-induced mood disorder; F31.9 Bipolar disorder, unspecified; F43.10 Post-traumatic stress disorder, unspecified; B35.3 Tinea pedis; R05.9 Cough, unspecified; Z62.810 Personal history of physical and sexual abuse in childhood; Z91.410 Personal history of adult physical and sexual abuse; Z59.02 Unsheltered homelessness
CPT/HCPCS: 36415; 80053; 80076; 80305; 80307; 81025; 85027; 86780; 86803; 87389; 93005; 93010; Q0162